=== PATIENT | female | born 1945 | race Caucasian/White ===

== ENCOUNTER → 2016-11-22 | Outpatient (CLI) | payer MEDICARE, BC ==
[2015-09-28 13:15] VITALS: BP 121/59
[~2016-11-22] VITALS: Ht 167.6 cm; Wt 84.8 kg
[~2016-11-22] MED LIST: ALBU8.5H6 INH; ALPR0.254 PO; ALPR0.5T6 PO; ASPI-252 PO; ASPI81TA2 PO; ATOR10TA PO; CARV3.12 PO; ESTR42.53 VG; FURO-68 PO; Fiber Choice PO; GABA-586 PO; HYDR-2672 PO; HYDR-963 PO; HYDR200T PO; Hydrocodone/Acetaminophen PO; IPRA0.2S5 NEB; LOSA25TA4 PO; MELO15TA6 PO; MULT-503 PO; MULT-658 PO; OMEG1CAP16 PO; OMEG500C PO; OMEP20CA5 PO; OMEP20TA PO; ONDA4TAB7 PO; PANT40TA3 PO; PHEN15TA PO; POLY17PO5 PO; POTA10TA10 PO; PROAIR HFA8.5 GM IH; SINCALIDE 1.7 MCG in IV NORMAL SALINE 50ML 30 ML IV ONE; [UNRECOGNIZED DRUG - CODE] PO
--- NOTE | 2016-11-22 10:54 | RAD ---
Indication: Right upper quadrant pain for 5 months. The patient was administered 5.5 mCi technetium 99m Choletec and imaging over the abdomen was performed. In addition, the patient was administered 1.7 mcg CCK and gallbladder ejection fraction was calculated. There is homogeneous uptake of activity throughout the liver. Prompt excretion into the gallbladder and common duct are noted. There is normal passage into the small bowel. The gallbladder ejection fraction is normal at 89%. There is a small amount of activity identified in the stomach consistent with bile reflux. Impression: 1. No evidence of cystic duct or common bile duct obstruction. 2. Normal gallbladder ejection fraction. 3. Findings consistent with mild bile reflux.
== END | disposition home or self-care (01) ==
LOC: NM 07:55
PROVIDERS: ATTEND Family Medicine
DX: R10.11 Right upper quadrant pain (principal); K21.9 Gastro-esophageal reflux disease without esophagitis
CPT/HCPCS: 78226; 96374; 96375; A9537; J2805

== ENCOUNTER → 2016-11-25 | Outpatient (CLI) | payer MEDICARE, BC ==
[2015-09-28 13:15] VITALS: BP 121/59
[~2016-11-25] MED LIST changes: -SINCALIDE 1.7 MCG in IV NORMAL SALINE 50ML 30 ML IV ONE
--- NOTE | 2016-11-25 10:37 | KCIC ---
PROCEDURE Chest CT without contrast. HISTORY Cigarette smoking history. COPD. Pulmonary nodule follow-up. TECHNIQUE Computed tomographic images of the chest were obtained without contrast. One or more of the following individualized dose reduction techniques were utilized for this examination: 1. Automated exposure control; 2. Adjustment of the mA and/or kV according to patient size; 3. Use of iterative reconstruction technique. COMPARISON 05/13/2016 FINDINGS There has been no change in a 5 mm nodule within the left upper lobe along the upper mid aspect of the left pleural fissure. There is a 1.8 cm pleural-based opacity within the right middle lobe with thickening of the adjacent pleural fissure. There is mild emphysema. There is no pneumothorax or plural effusion. There are findings consistent with median sternotomy and coronary artery bypass grafting. There is a coronary artery stent. The heart is mildly enlarged. There are nonspecific mediastinal and hilar lymph nodes stable in appearance and not clearly pathologically enlarged. There is a tiny hiatal hernia. There is suspected hepatic steatosis. The upper abdomen is otherwise unremarkable. There is no suspicious osseous lesion. IMPRESSION 1. 1.8 cm pleural-based opacity within the right middle lobe with adjacent pleural thickening, new compared to the prior study. This may be due to atelectasis or pleural-parenchymal scarring. The possibility of focal infiltrate is not excluded. The imaging appearance does not favor neoplasm. However, short-term follow-up is recommended to confirm resolution. 2. Stable 5 mm nodule within the left upper lobe, the location of which favors an intrafissural lymph node. Followup can be performed according to Fleischner society criteria. 3. Mild emphysema. 4. Mild cardiomegaly and evidence of prior CABG and coronary artery stent placement. Electronically signed by: Yaima Kaur (Nov 25, 2016 10:36:44)
== END | disposition home or self-care (01) ==
LOC: KCIC CT 09:34
PROVIDERS: ATTEND Internal Medicine Pulmonary Disease
DX: J44.9 Chronic obstructive pulmonary disease, unspecified (principal); R91.1 Solitary pulmonary nodule; I51.7 Cardiomegaly; F17.200 Nicotine dependence, unspecified, uncomplicated
CPT/HCPCS: 71250

== ENCOUNTER → 2017-02-28 | Outpatient (CLI) | payer MEDICARE, BC ==
[2015-09-28 13:15] VITALS: BP 121/59
[~2017-02-28] MED LIST changes: +POLY17PO29 PO; -POLY17PO5 PO; -POTA10TA10 PO; +POTA10TA12 PO
--- NOTE | 2017-02-28 11:42 | KCIC ---
CT chest without contrast Indication: Lung nodules. Axial imaging through the chest was performed without contrast. PQRS STATEMENT One or more of the following individualized dose reduction techniques were utilized for this study: 1.Automated exposure control. 2.Adjustment of the mA and/orkVaccording to patient size. 3.Use of iterative reconstruction technique. Comparison is made with prior CT chest from 11/25/2016. Small lymph nodes are identified in the axillae bilaterally. No definite lymphadenopathy is seen. Right paratracheal node is 1.7 centimeters in length compared with 1.5 centimeters on prior. Leanne are unremarkable. Coronary arterial calcifications are noted. The heart is enlarged. There are changes of median sternotomy. No pericardial or pleural fluid is identified. There are centrilobular emphysematous changes in both lungs. Tiny subpleural nodule anterolateral left upper lobe, image 12 appears stable. The subpleural opacity along the lateral aspect of the right middle lobe with adjacent linear parenchymal density is similar to perhaps slightly larger measuring 2.0 centimeters compared with 1.8 centimeters. Continued close follow-up is recommended. No new parenchymal opacities are seen. The upper abdomen is unremarkable. Impression: Minimal increase in size of right paratracheal lymph node and right middle lobe subpleural opacity when compared with exam from October 2016. Continued close follow-up with repeat study in 3-4 months recommended to confirm stability. Electronically signed by: Fran Amezcua MD (February 28, 2017 11:40:50)
== END | disposition home or self-care (01) ==
LOC: KCIC CT 09:31
PROVIDERS: ATTEND Internal Medicine Pulmonary Disease
DX: R91.1 Solitary pulmonary nodule (principal)
CPT/HCPCS: 71250

== ENCOUNTER → 2017-03-13 | Outpatient (CLI) | payer MEDICARE, BC ==
[2015-09-28 13:15] VITALS: BP 121/59
--- NOTE | 2017-03-13 16:20 | RAD ---
Susan Florian FDG tumor localization scan, PET/CT, 03/13/2017: History: Lung cancer Imaging was performed from the skull base to the proximal thighs following an IV bolus injection of 15.1 mCi of 18 F-FDG. The noncontrast CT component was performed for attenuation correction and anatomic localization purposes rather than for primary diagnosis. The patient's blood glucose level at the time of injection was 118 MG/DL. There is a small subpleural parenchymal mass in the lateral aspect of the right middle lobe, as also noted on prior CT studies. This density measures approximately 1 x 2 cm. It demonstrates only low level FDG uptake with a maximum SUV of 1.8. This is not considered to be PET positive. The pulmonary uptake is otherwise unremarkable. No hypermetabolic mediastinal lesion is seen. There are small foci of increased activity at the level of the sternal wires compatible with minimal inflammation or incomplete healing. Physiologic activity is present in the neck. No hypermetabolic neck process is seen. Normal GI tract and urinary tract activity is present in the abdomen and pelvis. No abnormal intra-abdominal FDG uptake is seen. There is mildly increased activity in the anal region compatible with nonspecific inflammation. There is increased activity involving the right paraspinous musculature in the lumbar region. This is presumably due to muscular strain, nonspecific inflammation or splinting. Incidental CT findings include the presence of aortic and coronary calcifications. A coronary artery stent is evident. The heart is enlarged. There are scattered parenchymal scars in the lungs. IMPRESSION: 1. The patient's known subpleural right middle lobe parenchymal mass demonstrates only low level FDG uptake, in a range most compatible with inflammation. Indolent or low-grade malignancy cannot be excluded. 2. No PET evidence of metastatic disease.
== END | disposition home or self-care (01) ==
LOC: PETSC 12:30
PROVIDERS: ATTEND Internal Medicine Pulmonary Disease
DX: R91.8 Other nonspecific abnormal finding of lung field (principal)
CPT/HCPCS: 78815; A9552

== ENCOUNTER → 2017-10-13 | Outpatient (CLI) | payer MEDICARE, BC ==
[2015-09-28 13:15] VITALS: BP 121/59
[~2017-10-13] MED LIST changes: +ASPI-630 PO; -ASPI81TA2 PO; -HYDR-2672 PO; +HYDR-2766 PO; -OMEG1CAP16 PO; +OMEG1CAP27 PO; -OMEP20TA PO; +OMEP20TA8 PO
--- NOTE | 2017-10-13 15:24 | KCIC ---
Indication: Right wrist pain and injury. Time of exam 3:09 PM 3 views of the right wrist were obtained. There are severe degenerative changes of the carpus of the right wrist, notably the triscaphe and first CMC joints. There is joint space narrowing, sclerosis and marginal osteophyte formation. The distal radius and ulna are intact. Visualized metacarpals are intact. There are no fractures identified. 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 No acute bony abnormality is detected. Electronically signed by: Fran Amezcua MD (10/13/2017 3:21 PM) [id number]
== END | disposition home or self-care (01) ==
LOC: KCIC 15:04
PROVIDERS: ATTEND Family Medicine
DX: S69.81XA Other specified injuries of right wrist, hand and finger(s), initial encounter (principal); X58.XXXA Exposure to other specified factors, initial encounter; Y93.89 Activity, other specified; Y92.89 Other specified places as the place of occurrence of the external cause; Y99.8 Other external cause status
CPT/HCPCS: 73110

== ENCOUNTER → 2018-03-06 | Outpatient (CLI) | payer MEDICARE, BC | END | disposition home or self-care (01) | LOC: KCIC CT 12:10 | DX: J43.9 Emphysema, unspecified (principal); J18.1 Lobar pneumonia, unspecified organism; I10 Essential (primary) hypertension; E11.9 Type 2 diabetes mellitus without complications; E78.5 Hyperlipidemia, unspecified; R91.1 Solitary pulmonary nodule; Z87.891 Personal history of nicotine dependence | CPT/HCPCS: 71250 ==

== ENCOUNTER → 2019-07-27 | Outpatient (CLI) | payer MEDICARE, BC ==
[2018-12-11 12:31] VITALS: BP 91/49
[~2019-07-27] MED LIST changes: +ALBU2.5V8 IH; +ASPI-612 PO; +BIOT10004 PO; +CHOL500021 PO; +EVOL140P SQ; +FURO20TA3 PO; -GABA-586 PO; +GABA300C18 PO; +GABA300C9 PO; -HYDR-2766 PO; +HYDR-2769 PO; +HYDR-3135 PO; -HYDR-963 PO; -HYDR200T PO; +HYDR200T71 PO; -LOSA25TA4 PO; +LOSA25TA54 PO; +MAGNILIFE TOP; +OMEG1CAP28 PO; +PANT20TA2 PO; -PANT40TA3 PO; +PANT40TA77 PO; -PROAIR HFA8.5 GM IH; +SPIR25TA5 PO; +TIOT4MIS3 IH; +UBIQ75CA PO; +ZOLP5TAB5 PO
--- NOTE | 2019-07-27 15:21 | KCIC ---
EXAM: Renal sonogram. HISTORY: Flank pain. TECHNIQUE: Sonographic imaging of the abdomen was performed. COMPARISON: At CT dated 03/13/2017. FINDINGS: The right kidney measures 10.9 cm [id number]. Left kidney measures 9.1 cm [id number]. There is left renal cortical lobulation likely due to scarring. No convincing solid renal lesion is seen. There is no hydronephrosis. The aorta and inferior vena cava are predominantly obscured due to bowel gas. There is a post void bladder, limiting evaluation of the ureteral jets. IMPRESSION: 1. Suspected left renal cortical lobulation due to scarring. No convincing solid or cystic lesion is seen. 2. No hydronephrosis. Electronically signed by: Yaima Kaur MD (07/27/2019 3:18 PM) [facility]
== END | disposition home or self-care (01) ==
LOC: KCIC US 09:53
PROVIDERS: ATTEND Family Medicine
DX: R10.9 Unspecified abdominal pain (principal)
CPT/HCPCS: 76770

== ENCOUNTER → 2019-09-21 | Outpatient (CLI) | payer MEDICARE, BC ==
[2018-12-11 12:31] VITALS: BP 91/49
[~2019-09-21] MED LIST changes: +CONTRAST GIVEN. MC PRN; +IOHEXOL 240 MG/ML 50ML VIAL. PO ONE; +IOHEXOL 300 MG/ML 100ML VIAL. IV ONE; -POTA10TA12 PO; +POTASSIUM CHLO10 ME1 PO
--- NOTE | 2019-09-21 14:49 | KCIC ---
EXAM: CT Abdomen and Pelvis with IV contrast CLINICAL HISTORY: Left lower quadrant pain, right flank pain, history of total hysterectomy and appendectomy. Bloating, constipation, dysuria. COMPARISON: none TECHNIQUE: Helical CT of the abdomen and pelvis was performed following the administration of intravenous contrast. Axial, coronal and sagittal reformatted images were generated. PQRS compliance statement - One or more of the following individualized dose reduction techniques were utilized for this study: 1. Automated exposure control 2. Adjustment of the mA and/or kV according to patient size 3. Use of iterative reconstruction technique FINDINGS: Lower chest: Linear opacities in the lower lobes bilaterally, right greater and less likely scarring/atelectasis. Cardiomegaly. Coronary artery calcifications are seen. Abdomen and Pelvis: No focal liver lesion. Gallbladder is normal. No biliary ductal dilatation. The spleen is unremarkable. Adrenal glands are unremarkable. Pancreas is normal in appearance. Symmetric nephrograms. Thinning of the left renal cortex posteriorly likely from prior renal cortical scarring. No hydronephrosis or hydroureter. Bladder is unremarkable. Moderate colonic stool content is seen. No small or large bowel dilatation. No evidence for bowel obstruction. Colonic diverticula are seen without evidence for acute diverticulitis. No abdominal or pelvic lymphadenopathy. A few mildly prominent retroperitoneal and mesenteric lymph nodes are seen, possibly reactive. No abdominal or pelvic ascites. Small fat-containing periumbilical hernia. Bones: Rightward curvature of the lumbar spine, apex L3. IMPRESSION: 1. No bowel obstruction. 2. No definite renal tract calculus or hydronephrosis/hydroureter. 3. Colonic diverticula are seen however no CT evidence for acute diverticulitis. 4. Small fat-containing periumbilical hernia is seen. Electronically signed by: Theo Becerril MD (09/21/2019 2:47 PM) [id number]
== END | disposition home or self-care (01) ==
LOC: KCIC CT 09:34
PROVIDERS: ATTEND Family Medicine
DX: K57.30 Diverticulosis of large intestine without perforation or abscess without bleeding (principal); K42.9 Umbilical hernia without obstruction or gangrene; I25.10 Atherosclerotic heart disease of native coronary artery without angina pectoris; I51.7 Cardiomegaly; J44.9 Chronic obstructive pulmonary disease, unspecified; F17.200 Nicotine dependence, unspecified, uncomplicated; Z88.2 Allergy status to sulfonamides; Z90.710 Acquired absence of both cervix and uterus; Z90.49 Acquired absence of other specified parts of digestive tract; Z79.01 Long term (current) use of anticoagulants
CPT/HCPCS: 74177; Q9966; Q9967

== ENCOUNTER → 2019-11-10 | Outpatient (CLI) | payer MEDICARE, BC ==
[2018-12-11 12:31] VITALS: BP 91/49
[~2019-11-10] MED LIST changes: -CONTRAST GIVEN. MC PRN; -EVOL140P SQ; +EVOL140P3 SQ; -IOHEXOL 240 MG/ML 50ML VIAL. PO ONE; -IOHEXOL 300 MG/ML 100ML VIAL. IV ONE
--- NOTE | 2019-11-10 15:39 | KCIC ---
PROCEDURE: ELBOW RIGHT 3V STUDY DATE: 11/10/2019 CLINICAL INDICATION / HISTORY: Right lateral epicondylitis. Right elbow pain for one year with twisting and flexing. TECHNIQUE: Right Elbow 3 views COMPARISON: None FINDINGS: AP, lateral and oblique views of the right elbow demonstrate no evidence of fracture, subluxation, or dislocation. There is however osteophytic spurring on the right radial head and mild joint space narrowing. Ossification at the common extensor tendon origin on the lateral epicondyle is also noted. Soft tissues are otherwise unremarkable. IMPRESSION: Evidence of radiocapitellar degenerative change and subtle findings of lateral epicondylitis by x-ray. No fracture or aggressive appearing osseous lesions. Electronically signed by: Jaylon Brown MD (11/10/2019 3:36 PM) [facility]
== END | disposition home or self-care (01) ==
LOC: KCIC 14:29
PROVIDERS: ATTEND Family Medicine
DX: M77.11 Lateral epicondylitis, right elbow (principal); M19.021 Primary osteoarthritis, right elbow
CPT/HCPCS: 73080

== ENCOUNTER 2020-01-25 13:43 | Emergency (ER) | payer MEDICARE, BC ==
[~2020-01-25] VITALS: Ht 167.6 cm; Wt 186.0 kg
--- NOTE | 2020-01-25 14:37 | PHYS DOC ---
Past Medical History Past Medical History: CHF, COPD (MINDY DOMINGUEZ APRN) Past Surgical History: Coronary Bypass Surgery, Other Additional Past Surgical Histo: carpal tunnel bilateral surgery, right shoulder surgery, kidney stone surg (MINDY DOMINGUEZ APRN) Smoking Status: Former Smoker Alcohol Use: Occasionally Additional Information: 1 glass of wine daily Drug Use: None (MINDY DOMINGUEZ APRN) Adult General Chief Complaint Chief Complaint: DEHYDRATION HPI HPI Patient is a 74 year old female with history of COPD oxygen dependent, history of smoking, reports recent smoking sensation less than 3 months, CHF, CAD, who presents to the ED today complaining of increased weakness and shortness of breath. Patient states this morning she woke up and decided to take her oxygen off for a while. She states during the period She had no oxygen she became weak and had increased shortness of breath and also fell down 3 times. Patient states she called her doctor who requested her to come to the ED to be checked for dehydration and kidney stones. She reports history of both. She reports she was admitted to the hospital last week for shortness of breath among other symptoms and had a negative COV19 test (MINDY DOMINGUEZ APRN) Review of Systems Review of Systems Constitutional: Denies fever or chills [] Eyes: Denies change in visual acuity, redness, or eye pain [] HENT: Denies nasal congestion or sore throat [] Respiratory: Reports shortness of breath. Denies cough Cardiovascular: No additional information not addressed in HPI [] GI: Denies abdominal pain, nausea, vomiting, bloody stools or diarrhea [] : Denies dysuria or hematuria [] Musculoskeletal: Denies back pain or joint pain [] Integument: Denies rash or skin lesions [] Neurologic: Reports generalized weakness. Denies headache, focal weakness or sensory changes [] Endocrine: Denies polyuria or polydipsia [] All other systems were reviewed and found to be within normal limits, except as documented in this note. (MINDY DOMINGUEZ APRN) Current Medications Current Medications Current Medications Medications (Trade) Dose Ordered Sig/Jam Start Time Stop Time Status Last Admin Dose Admin Furosemide (Lasix) 40 mg 1X ONCE 01/25/20 16:45 01/25/20 16:47 DC 01/25/20 17:10 40 MG (GOLLAPALLI,YONY E DO) Allergies Allergies Allergies Coded Allergies Type Severity Reaction Last Updated Verified Sulfa (Sulfonamide Antibiotics) Allergy Intermediate 06/27/15 Yes sulfamethoxazole Allergy Intermediate 06/27/15 Yes trimethoprim Allergy Intermediate 06/27/15 Yes (KENTRELLMOISERADHAYONY Andrew ) Physical Exam Physical Exam Constitutional: Well developed, well nourished, no acute distress, non-toxic appearance. [] HENT: Normocephalic, atraumatic, bilateral external ears normal, oropharynx moist, no oral exudates, nose normal. [] Eyes: PERRLA, EOMI, conjunctiva normal, no discharge. [] Neck: Normal range of motion, no tenderness, supple, no stridor. [] Cardiovascular:Heart rate regular rhythm, no murmur [] Lungs & Thorax: Bilateral breath sounds clear to auscultation [] Abdomen: Bowel sounds normal, soft, no tenderness, no masses, no pulsatile masses. [] Skin: Warm, dry, no erythema, no rash. [] Back: No tenderness, no CVA tenderness. [] Extremities: No tenderness, no cyanosis, no clubbing, ROM intact, no edema. [] Neurologic: Alert and oriented X 3, normal motor function, normal sensory function, no focal deficits noted. Cranial nerves II through XII intact Psychologic: Affect normal, judgement normal, mood normal. [] (MINDY DOMINGUEZ APRN) Current Patient Data Vital Signs Vital Signs Date Time Temp Pulse Resp B/P (MAP) Pulse Ox O2 Delivery O2 Flow Rate FiO2 01/25/20 17:11 76 24 98 Nasal Cannula 1.0 01/25/20 16:29 142/77 (98) 01/25/20 13:59 98.4 98.4 (YONY CARDONA ) Lab Values Laboratory Tests Test 01/25/20 14:20 01/25/20 15:03 White Blood Count 8.9 x10^3/uL (4.0-11.0) Red Blood Count 3.60 x10^6/uL (3.50-5.40) Hemoglobin 10.8 g/dL (12.0-15.5) L Hematocrit 33.5 % (36.0-47.0) L Mean Corpuscular Volume 93 fL (79-100) Mean Corpuscular Hemoglobin 30 pg (25-35) Mean Corpuscular Hemoglobin Concent 32 g/dL (31-37) Red Cell Distribution Width 16.7 % (11.5-14.5) H Platelet Count 206 x10^3/uL (140-400) Neutrophils (%) (Auto) 74 % (31-73) H Lymphocytes (%) (Auto) 15 % (24-48) L Monocytes (%) (Auto) 8 % (0-9) Eosinophils (%) (Auto) 2 % (0-3) Basophils (%) (Auto) 0 % (0-3) Neutrophils # (Auto) 6.5 x10^3/uL (1.8-7.7) Lymphocytes # (Auto) 1.4 x10^3/uL (1.0-4.8) Monocytes # (Auto) 0.7 x10^3/uL (0.0-1.1) Eosinophils # (Auto) 0.2 x10^3/uL (0.0-0.7) Basophils # (Auto) 0.0 x10^3/uL (0.0-0.2) Urine Collection Type Unknown Urine Color Yellow Urine Clarity Clear Urine pH 5.5 (<5.0-8.0) Urine Specific Thomas 1.025 (1.000-1.030) Urine Protein Negative mg/dL (NEG-TRACE) Urine Glucose (UA) Negative mg/dL (NEG) Urine Ketones (Stick) Negative mg/dL (NEG) Urine Blood Negative (NEG) Urine Nitrite Negative (NEG) Urine Bilirubin Negative (NEG) Urine Urobilinogen Dipstick 0.2 mg/dL (0.2 mg/dL) Urine Leukocyte Esterase Negative (NEG) Urine RBC 0 /HPF (0-2) Urine WBC 1-4 /HPF (0-4) Urine Squamous Epithelial Cells Mod /LPF Urine Renal Epithelial Cells Occ /LPF Urine Bacteria Few /HPF (0-FEW) Urine Mucus Mod /LPF Sodium Level 145 mmol/L (136-145) Potassium Level 4.3 mmol/L (3.5-5.1) Chloride Level 106 mmol/L (98-107) Carbon Dioxide Level 34 mmol/L (21-32) H Anion Gap 5 (6-14) L Blood Urea Nitrogen 29 mg/dL (7-20) H Creatinine 1.3 mg/dL (0.6-1.0) H Estimated GFR (Cockcroft-Gault) 40.3 BUN/Creatinine Ratio 22 (6-20) H Glucose Level 126 mg/dL (70-99) H Calcium Level 8.5 mg/dL (8.5-10.1) Magnesium Level 1.8 mg/dL (1.8-2.4) Total Bilirubin 0.5 mg/dL (0.2-1.0) Aspartate Amino Transferase (AST) 20 U/L (15-37) Alanine Aminotransferase (ALT) 21 U/L (14-59) Alkaline Phosphatase 117 U/L (46-116) H Creatine Kinase 126 U/L (26-192) Creatine Kinase MB (Mass) 2.9 ng/mL (0.0-3.6) Creatine Kinase MB Relative Index 2.3 % (0-4) Troponin I Quantitative < 0.017 ng/mL (0.000-0.055) OI-Sra-K-Type Natriuretic Peptide 9403 pg/mL (0-124) H Total Protein 6.1 g/dL (6.4-8.2) L Albumin 3.6 g/dL (3.4-5.0) Albumin/Globulin Ratio 1.4 (1.0-1.7) Thyroid Stimulating Hormone (TSH) 4.425 uIU/mL (0.358-3.74) H Urine Opiates Screen Pos (NEG) Urine Methadone Screen Neg (NEG) Urine Barbiturates Neg (NEG) Urine Phencyclidine Screen Neg (NEG) Urine Amphetamine/Methamphetamine Neg (NEG) Urine Benzodiazepines Screen Pos (NEG) Urine Cocaine Screen Neg (NEG) Urine Cannabinoids Screen Neg (NEG) Urine Ethyl Alcohol Neg (NEG) Prothrombin Time 14.1 SEC (11.7-14.0) H Prothrombin Time INR 1.1 (0.8-1.1) Laboratory Tests 01/25/20 14:20 Laboratory Tests 01/25/20 14:20 (YONY CARDONA DO) Lab Values Laboratory Tests Test 01/25/20 14:20 01/25/20 15:03 White Blood Count 8.9 x10^3/uL (4.0-11.0) Red Blood Count 3.60 x10^6/uL (3.50-5.40) Hemoglobin 10.8 g/dL (12.0-15.5) L Hematocrit 33.5 % (36.0-47.0) L Mean Corpuscular Volume 93 fL (79-100) Mean Corpuscular Hemoglobin 30 pg (25-35) Mean Corpuscular Hemoglobin Concent 32 g/dL (31-37) Red Cell Distribution Width 16.7 % (11.5-14.5) H Platelet Count 206 x10^3/uL (140-400) Neutrophils (%) (Auto) 74 % (31-73) H Lymphocytes (%) (Auto) 15 % (24-48) L Monocytes (%) (Auto) 8 % (0-9) Eosinophils (%) (Auto) 2 % (0-3) Basophils (%) (Auto) 0 % (0-3) Neutrophils # (Auto) 6.5 x10^3/uL (1.8-7.7) Lymphocytes # (Auto) 1.4 x10^3/uL (1.0-4.8) Monocytes # (Auto) 0.7 x10^3/uL (0.0-1.1) Eosinophils # (Auto) 0.2 x10^3/uL (0.0-0.7) Basophils # (Auto) 0.0 x10^3/uL (0.0-0.2) Urine Collection Type Unknown Urine Color Yellow Urine Clarity Clear Urine pH 5.5 (<5.0-8.0) Urine Specific Thomas 1.025 (1.000-1.030) Urine Protein Negative mg/dL (NEG-TRACE) Urine Glucose (UA) Negative mg/dL (NEG) Urine Ketones (Stick) Negative mg/dL (NEG) Urine Blood Negative (NEG) Urine Nitrite Negative (NEG) Urine Bilirubin Negative (NEG) Urine Urobilinogen Dipstick 0.2 mg/dL (0.2 mg/dL) Urine Leukocyte Esterase Negative (NEG) Urine RBC 0 /HPF (0-2) Urine WBC 1-4 /HPF (0-4) Urine Squamous Epithelial Cells Mod /LPF Urine Renal Epithelial Cells Occ /LPF Urine Bacteria Few /HPF (0-FEW) Urine Mucus Mod /LPF Sodium Level 145 mmol/L (136-145) Potassium Level 4.3 mmol/L (3.5-5.1) Chloride Level 106 mmol/L (98-107) Carbon Dioxide Level 34 mmol/L (21-32) H Anion Gap 5 (6-14) L Blood Urea Nitrogen 29 mg/dL (7-20) H Creatinine 1.3 mg/dL (0.6-1.0) H Estimated GFR (Cockcroft-Gault) 40.3 BUN/Creatinine Ratio 22 (6-20) H Glucose Level 126 mg/dL (70-99) H Calcium Level 8.5 mg/dL (8.5-10.1) Magnesium Level 1.8 mg/dL (1.8-2.4) Total Bilirubin 0.5 mg/dL (0.2-1.0) Aspartate Amino Transferase (AST) 20 U/L (15-37) Alanine Aminotransferase (ALT) 21 U/L (14-59) Alkaline Phosphatase 117 U/L (46-116) H Creatine Kinase 126 U/L (26-192) Creatine Kinase MB (Mass) 2.9 ng/mL (0.0-3.6) Creatine Kinase MB Relative Index 2.3 % (0-4) Troponin I Quantitative < 0.017 ng/mL (0.000-0.055) KG-Qof-Z-Type Natriuretic Peptide 9403 pg/mL (0-124) H Total Protein 6.1 g/dL (6.4-8.2) L Albumin 3.6 g/dL (3.4-5.0) Albumin/Globulin Ratio 1.4 (1.0-1.7) Thyroid Stimulating Hormone (TSH) 4.425 uIU/mL (0.358-3.74) H Urine Opiates Screen Pos (NEG) Urine Methadone Screen Neg (NEG) Urine Barbiturates Neg (NEG) Urine Phencyclidine Screen Neg (NEG) Urine Amphetamine/Methamphetamine Neg (NEG) Urine Benzodiazepines Screen Pos (NEG) Urine Cocaine Screen Neg (NEG) Urine Cannabinoids Screen Neg (NEG) Urine Ethyl Alcohol Neg (NEG) Prothrombin Time 14.1 SEC (11.7-14.0) H Prothrombin Time INR 1.1 (0.8-1.1) Laboratory Tests 01/25/20 14:20 Laboratory Tests 01/25/20 14:20 (MINDY DOMINGUEZ APRN) EKG EKG [address] Cardona sinus rhythm HR 76 no STEMI[] (MINDY DOMINGUEZ APRN) Radiology/Procedures Radiology/Procedures []PROCEDURE: PORTABLE CHEST 1V PORTABLE CHEST 1V History: Weakness Comparison: January 17, 2020 chest x-ray. CT December 10, 2018. Findings: Right mid and lower lung linear atelectasis or scarring, unchanged. Portable technique accentuates cardiac size, unchanged. Prior median sternotomy. No pneumothorax. No pleural effusion. Elevation of the right hemidiaphragm. Impression: 1. Right mid and lower lung linear opacities, may represent atelectasis or scarring, unchanged. No new consolidation. Electronically signed by: Neo Elias DO (01/25/2020 2:48 PM) [id number] DICTATED and SIGNED BY: NEO ELIAS DO DATE: 01/25/20 1448 PROCEDURE: CT HEAD WO CONTRAST EXAM: CT Head without IV contrast INDICATION: Weakness TECHNIQUE: Multi-detector row CT images were obtained of the head without the use of IV contrast. All CT scans performed at this facility utilize dose optimization techniques as appropriate to the exam, including the following: Automated exposure control and adjustment of the mA and/or KV according to patient size (this includes techniques or standardized protocols for targeted exams where dose is indication/reason for exam). COMPARISON: 01/17/[address] FINDINGS: BRAIN PARENCHYMA: No evidence of acute intraparenchymal hemorrhage or infarct. Generalized parenchymal volume loss and mild white matter low-density compatible with chronic ischemic microvascular change is redemonstrated. VENTRICLES & EXTRA-AXIAL SPACES: Ventricles are within normal limits. Basilar cisterns are patent. No pathologic extra-axial fluid collection or mass. ORBITS: Orbital contents are unremarkable. SINUSES: Visualized paranasal sinuses and mastoid air cells are clear. OSSEOUS & SOFT TISSUES: Calvarium and skull base are intact. IMPRESSION: No acute intracranial pathology. Electronically signed by: Sondra Brown MD (01/25/2020 2:55 PM) [id number] DICTATED and SIGNED BY: SONDRA BROWN MD DATE: 01/25/20 2927 (MINDY DOMINGUEZ APRN) Course & Med Decision Making Course & Med Decision Making Pertinent Labs and Imaging studies reviewed. (See chart for details) This is a 74-year-old female patient with history of COPD oxygen dependent who presents to the ED today complaining of increased shortness of breath and weakness. Patient states this morning she woke up and took her oxygen off for a while then realized she is short of air and became weak. She believes she fell down 3 times though she has no pain or signs of trauma. She arrives in the ED with oxygen saturation above 97% on 1 L of oxygen. She was seen in the ED and admitted approximately a week ago, had a negative COVID 19 test. She is afebrile. CBC with a normal WBC, CMP with improved potassium of 4.3, last time patient was admitted her potassium was 5.8, BUN and creatinine have also improved currently creatinine of 1.3, BUN of 29. BNP 9403, patient was given 1 dose of furosemide in the ED. CT of the head is negative, chest x-ray with no acute findings. Discharge to home. Follow-up with her own PCP in the course of this week or next week. Advised to avoid taking her oxygen off considering she is oxygen dependent urine analysis was negative for any acute findings. (MINDY DOMINGUEZ APRN) Dragon Disclaimer Dragon Disclaimer This electronic medical record was generated, in whole or in part, using a voice recognition dictation system. (MINDY DOMINGUEZ APRN) Attending Signature I have participated in the care of this patient and I have reviewed and agree with all pertinent clinical information above including history, exam, and recommendations. (YONY CARDONA DO) Departure Departure Impression: Primary Impression: CHF (congestive heart failure) Disposition: 01 HOME, SELF-CARE Condition: STABLE Referrals: NARESH ECHOLS MD (PCP) follow up next week Patient Instructions: Heart Failure, [id number] Additional Instructions: Please follow-up with your primary care doctor in the course of this week. Problem Qualifiers Primary Impression: CHF (congestive heart failure) Heart failure type: unspecified Heart failure chronicity: acute on chronic Qualified Codes: I50.9 - Heart failure, unspecified MINDY DOMINGUEZ APRN Jan 25, 2020 14:37 YONY CARDONA DO Jan 26, 2020 10:42
--- NOTE | 2020-01-25 14:51 | RAD ---
PORTABLE CHEST 1V History: Weakness Comparison: January 17, 2020 chest x-ray. CT December 10, 2018. Findings: Right mid and lower lung linear atelectasis or scarring, unchanged. Portable technique accentuates cardiac size, unchanged. Prior median sternotomy. No pneumothorax. No pleural effusion. Elevation of the right hemidiaphragm. Impression: 1. Right mid and lower lung linear opacities, may represent atelectasis or scarring, unchanged. No new consolidation. Electronically signed by: Neo Elias DO (01/25/2020 2:48 PM) [id number]
[2020-01-25 14:55] LABS: BASO % 0 % (0-3); EOS # 0.2 x10^3/uL (0.0-0.7); EOS % 2 % (0-3); HEMATOCRIT 33.5 % (36.0-47.0); HEMOGLOBIN 10.8 g/dL (12.0-15.5); LYMPH # 1.4 x10^3/uL (1.0-4.8); LYMPH % 15 % (24-48); MEAN CORPUSCULAR HEMOGLOBIN 30 pg (25-35); MEAN CORPUSCULAR HGB CONC 32 g/dL (31-37); MEAN CORPUSCULAR VOLUME 93 fL (79-100); MONO # 0.7 x10^3/uL (0.0-1.1); MONO % 8 % (0-9); NEUT # 6.5 x10^3/uL (1.8-7.7); NEUT % 74 % (31-73); PLATELET COUNT 206 x10^3/uL (140-400); RED CELL DISTRIBUTION WIDTH 16.7 % (11.5-14.5); WHITE BLOOD COUNT 8.9 x10^3/uL (4.0-11.0)
[2020-01-25 14:57] LABS: BILIRUBIN,URINE NEGATIVE (NEG); CLARITY,URINE CLEAR; COLOR,URINE YELLOW; NITRITE,URINE NEGATIVE (NEG); PH,URINE 5.5 (<5.0-8.0); PROTEIN,URINE NEGATIVE (NEG-TRACE); UROBILINOGEN,URINE 0.2 mg/dL (0.2 mg/dL)
--- NOTE | 2020-01-25 14:58 | RAD ---
EXAM: CT Head without IV contrast INDICATION: Weakness TECHNIQUE: Multi-detector row CT images were obtained of the head without the use of IV contrast. All CT scans performed at this facility utilize dose optimization techniques as appropriate to the exam, including the following: Automated exposure control and adjustment of the mA and/or KV according to patient size (this includes techniques or standardized protocols for targeted exams where dose is indication/reason for exam). COMPARISON: 01/17/[address] FINDINGS: BRAIN PARENCHYMA: No evidence of acute intraparenchymal hemorrhage or infarct. Generalized parenchymal volume loss and mild white matter low-density compatible with chronic ischemic microvascular change is redemonstrated. VENTRICLES & EXTRA-AXIAL SPACES: Ventricles are within normal limits. Basilar cisterns are patent. No pathologic extra-axial fluid collection or mass. ORBITS: Orbital contents are unremarkable. SINUSES: Visualized paranasal sinuses and mastoid air cells are clear. OSSEOUS & SOFT TISSUES: Calvarium and skull base are intact. IMPRESSION: No acute intracranial pathology. Electronically signed by: Jaylon Brown MD (01/25/2020 2:55 PM) [id number]
[2020-01-25 15:04] LABS: AMPHETAMINE/METHAMPHETAMINE NEG (NEG); BARBITURATES NEG (NEG); BENZODIAZEPINES POS (NEG); CANNABINOIDS NEG (NEG); COCAINE NEG (NEG); METHADONE NEG (NEG); OPIATES POS (NEG); PHENCYCLIDINE NEG (NEG)
[2020-01-25 15:06] LABS: CALCIUM 8.5 mg/dL (8.5-10.1); CREATININE 1.3 mg/dL (0.6-1.0); GFR 40.3; POTASSIUM 4.3 mmol/L (3.5-5.1)
[2020-01-25 15:10] LABS: BACTERIA,URINE FEW /HPF (0-FEW); RBC,URINE 0 /HPF (0-2)
[2020-01-25 15:11] LABS: SQUAMOUS EPITHELIAL CELL,UR MOD /LPF
[2020-01-25 15:12] LABS: ALBUMIN 3.6 g/dL (3.4-5.0); ALBUMIN/GLOBULIN RATIO 1.4 (1.0-1.7); MAGNESIUM 1.8 mg/dL (1.8-2.4); TOTAL BILIRUBIN 0.5 mg/dL (0.2-1.0); TOTAL PROTEIN 6.1 g/dL (6.4-8.2)
[2020-01-25 15:18] LABS: PROTHROMBIN TIME PATIENT 14.1 SEC (11.7-14.0)
--- NOTE | 2020-01-25 16:03 | EKG ---
[facility] [address] [place] [address] Test Date: 2020-01-25 Test Time: 15:59:26 Pat Name: SHREYA ECHEVERRIA Department: Room: Gender: F Manager Laundry: : 1945 Requested By: MINDY DOMINGUEZ Order Number: [id number] Reading MD: Measurements Intervals Savage Rate: 76 P: 51 MO: 182 QRS: 14 QRSD: 112 T: 18 QT: 408 QTc: 464 Interpretive Statements SINUS RHYTHM NO SPECIFIC ECG ABNORMALITIES RI6.01 No previous ECG available for comparison
[2020-01-25 16:29] VITALS: BP 142/77
[2020-01-25] MEDS ORDERED: FUROSEMIDE 40 MG TABLET. PO ONE (16:45)
== END 2020-01-25 17:30 | disposition home or self-care (01) ==
LOC: ER 13:43
DX: I50.9 Heart failure, unspecified (principal); R53.1 Weakness; R51 Headache; J44.9 Chronic obstructive pulmonary disease, unspecified; Z87.891 Personal history of nicotine dependence; Z95.1 Presence of aortocoronary bypass graft
CPT/HCPCS: 36415; 70450; 71045; 80053; 80307; 81001; 82553; 83735; 83880; 84443; 84484; 85025; 85610; 93005; 99285-25

== ENCOUNTER 2020-03-13 15:31 | Inpatient (IN) | payer BC, MEDICARE, OTHER ==
[~2020-03-13 15:31] MED LIST changes: +CEFD300C PO; +HYDR-2765 PO; +LORA0.5T96 PO
--- NOTE | 2020-03-13 16:27 | NUR ---
Pt readmitted with hospice care.
[2020-03-13] MEDS ORDERED: ACETAMINOPHEN 650 MG SUPP.RECT. PR PRN (16:30)
[2020-03-13] MEDS ORDERED: MORPHINE SULFATE 2 MG/ML VIAL. IV PRN (16:30)
[2020-03-13] MEDS: ATROPINE 1% OPHTH SOLUTION 5ML BOTTLE. SL PRN ×2 (18:20→23:30)
[2020-03-13] MEDS: MORPHINE SULFATE 2 MG/ML VIAL. IV SCH ×3 (18:26→23:29)
[2020-03-13 19:00] VITALS: BP 113/89
--- NOTE | 2020-03-13 23:30 | NUR ---
Axillary temp 103.6, ice packs placed to patient's axillae. Cool cloth to forehead. Morphine given IVP.
[2020-03-14] MEDS: MORPHINE SULFATE 2 MG/ML VIAL. IV SCH (01:29)
--- NOTE | 2020-03-14 02:36 | NUR ---
Patient has stopped breathing, pulses absent. [facility] notified @ [phone].
--- NOTE | 2020-03-14 03:07 | NUR ---
Eva, from [facility], has notified the family of the patient's . home has not been chosen yet.
--- NOTE | 2020-03-14 03:19 | NUR ---
Dr. Benton's answering service given message that patient has .
--- NOTE | 2020-03-14 05:04 | NUR ---
Patient bathed by this RN and Eva from [facility]. Accompanied to [facility] by this RN with personal belongings (greeting cards and Rooke boots). Dialysis cath and left triple lumen catheter left in place. Spears and rectal tube removed. reported to [place], case no [id number].
== END 2020-03-14 04:45 | disposition expired | DRG 871 ==
LOC: 4 NORTH 16:06
PROVIDERS: ADMIT Internal Medicine; ATTEND Internal Medicine
DX: A41.9 Sepsis, unspecified organism (principal); J96.01 Acute respiratory failure with hypoxia; J69.0 Pneumonitis due to inhalation of food and vomit; K72.00 Acute and subacute hepatic failure without coma; J96.02 Acute respiratory failure with hypercapnia; N17.9 Acute kidney failure, unspecified; E87.0 Hyperosmolality and hypernatremia; I25.5 Ischemic cardiomyopathy; J44.9 Chronic obstructive pulmonary disease, unspecified; F32.9 Major depressive disorder, single episode, unspecified
CPT/HCPCS: J2060; J2270; G0378